=== PATIENT | female | born 1955 | race Caucasian/White ===

== ENCOUNTER 2020-08-05 07:10 | Day surgery (SDC) | payer BC, SELFPAY ==
[2020-08-05] MEDS: Tropicam./Phenyleph. (1/2.5%) 5 ML BTL OS ×2 (07:47→07:54)
[2020-08-05 07:56] VITALS: BP 134/78; PULSE 69; RESP 16; TEMP 36.7; O2SAT 96
[2020-08-05] MEDS: Tetracaine 0.5% 4 ML BTL OS (08:55)
[2020-08-05] MEDS: Balanced Salt Soln.-PLUS 500 ML BAG (08:56)
[2020-08-05] MEDS: Lidocaine 1% Pres-Free 5 ML VIAL (08:57)
[2020-08-05] MEDS: Lidocaine 2% Jelly 6 ML SYR (08:58)
[2020-08-05] MEDS: Povidone-Iodine Ophth 30 ML BTL (09:00)
--- NOTE | 2020-08-05 09:28 | W.PM.DSUDISC ---
Discharge Plan Disposition Patient Disposition: HOME Condition: Good Discharge Details Attending Provider: Kuldeep Rodriguez Primary Care Provider: Carla Alejo Home Meds and New Rx's Prescriptions: No Action spironolactone 25 MG tablet 25 mg PO BID RF: 0 metoprolol succinate 25 MG tablet extended release 24 hr 25 mg PO DAILY RF: 0 diphenoxylate-atropine 1 EACH tablet 1 ea PO PRN PRNRF: 0 Centrum Silver Women 1 EACH tablet 1 ea PO DAILY RF: 0 trandolapril 4 MG tablet 4 mg PO DAILY RF: 0 meloxicam 15 MG tablet 15 mg PO DAILY RF: 0 torsemide 10 MG tablet 10 mg PO DAILY RF: 0 omeprazole 40 MG capsule,delayed release(DR/EC) 40 mg PO DAILY RF: 0 simvastatin 40 MG tablet 40 mg PO DAILY RF: 0 dicyclomine 10 MG capsule 10 mg PO TID RF: 0 Eye Drop Tears 15 ML drops 1 drp Ophthalmic DAILY RF: 0 glucosam-chond kq-jhsjsu-de ac 1 EACH capsule 2 ea PO DAILY RF: 0 celecoxib 200 mg capsule 200 mg PO DAILY RF: 0 Discharge Instructions Stand Alone Forms: Post-op Block Cataract, Post-op Topical Cataract, Press Ganey (DSU) Discharge Orders Discharge Orders: Discharge Order (Routine); Ordered 08/05/20 Ordered By: Kuldeep Rodriguez DS: Diagnosis Discharge Diagnosis (1) Cortical cataract of left eye: Status: Resolved (2) Nuclear sclerotic cataract of left eye: Status: Resolved
--- NOTE | 2020-08-05 09:29 | W.PM.OP ---
Date of service: 08/05/20 Time of Service: 09:29 Operative Note Operative Note DATE OF PROCEDURE: 08/05/20 PRE-OP DIAGNOSIS: Nuclear/cortical cataract, left eye POST-OP DIAGNOSIS: same PROCEDURE: Cataract extraction using phacoemulsification with intraocular lens implant, left eye SURGEON: Kuldeep Rodriguez ANESTHESIA: MAC and local (sub-tenon's anesthetic infiltration) PATHOLOGY: none sent COMPLICATIONS: None Patient was transported to: same day Patient's condition: stable Implants: [employer] / [employer] Tecnis ZCB00 Indications: Progressive decreased vision due to cataract, left eye Procedure Description: CATARACT SURGERY OPERATIVE REPORT PREOPERATIVE DIAGNOSIS: Nuclear/cortical cataract, left eye POSTOPERATIVE DIAGNOSIS: Same OPERATION: Cataract extraction using phacoemulsification with posterior chamber intraocular lens implant, left eye. IOL: IOL Shoe Worker/Model: [employer] / SHAUNA Tecnis ZCB00 IOL Power: + 15.0 diopters IOL Serial Number: [id number] Optic Diameter: 6.0mm Haptic/Overall Diameter: 13.0mm PHACO INFO: [employer]anti [employer] Vision System with OZil and Active Fluidics Cumulative Dispersed Energy (CDE): 6.62 seconds SURGEON: Kuldeep Rodriguez MD, WENDI ANESTHESIA: Monitored Anesthesia Care (MAC), with local sub-tenon's anesthetic infiltration COMPLICATIONS: None SPECIMENS: None INDICATIONS FOR PROCEDURE: The patient is a 64-year-old lady with history of myopia who has developed significant nuclear and cortical cataract of the left eye. She desires cataract surgery and attempt to improve and maximize her vision. PROCEDURE: The correct surgical eye was identified and marked as the left eye and the pupil was dilated in the preoperative area using mydriatics and cycloplegics. The dilated pupil size was 7.0 mm. Oral sedation was administered in the form of an Imprimis MKO Melt (midazolam 3mg/ketamine 25mg/ondansetron 2mg). The patient was brought to the operating room where cardiopulmonary monitoring was instituted and surgical time-out was performed, confirming the correct operative eye and IOL power. Topical anesthesia was administered and ophthalmic povidone-iodine 5% was instilled into the conjunctival fornices. Lidocaine gel was applied to the cornea and the donaldo-ocular area was prepped with Betadine 10% solution and draped in the usual sterile fashion for intraocular surgery, including an aperture drape. A Tegaderm transparent film dressing was cut in half and used to cover the lashes and lid margins. Care was taken to sequester the lashes and lid margins under the Tegaderm dressing. A lid speculum was placed between the lids of the operative eye and the Clark-Skylar operating microscope was maneuvered into position. Doyle scissors were then used to make a conjunctival buttonhole approximately 6mm posterior to the limbus in the inferonasal quadrant. Blunt dissection was carried out to expose bare sclera, and a blunt-tipped sub-tenon?s anesthesia cannula was introduced and passed posteriorly along the globe where non-preserved plain lidocaine was injected into posterior sub-Tenon?s space. A sideport knife was used to make a paracentesis port superior/superiortemporally. Intraocular phenylephrine/lidocaine was injected into the anterior chamber. The anterior chamber was then filled with viscoelastic. A 2.4mm keratome knife was used to create a half-thickness groove at the limbus and then to construct a three-plane near-clear corneal tunnel extending 2.0mm into clear cornea in the temporal position. . A flap was raised on the anterior capsule and capsulorhexis forceps were used to complete a continuous curvilinear capsulorhexis of 5.7 mm. Balanced salt solution was then used to perform cortical cleaving hydrodissection and nuclear hydrodelineation until the lens could be freely rotated within the capsular bag. The lens nucleus was then disassembled and removed within the capsular bag and iris plane using phacoemulsification. Residual cortical material was removed using the 45-degree angled silicone I/A tip with 0.3mm port. The posterior capsule was carefully polished to remove as much residual lens epithelial cells as safely possible. The capsular bag was then inflated and the anterior chamber deepened with viscoelastic. The lens implant described above was inserted into the capsular bag using the SHAUNA [employer] Injector. A Kuglen hook was used to dial the IOL into position. Residual viscoelastic was then removed first from posterior to the IOL, then from the anterior chamber using the I/A handpiece. The lens implant was noted to center nicely within the capsular bag. The incisions were stromally hydrated, and the anterior chamber was reformed using BSS. Then 0.5cc of moxifloxacin 1.0mg/ml were injected into the capsular bag and anterior chamber. The incisions were checked with a Weck spear and found to be secure. Several drops of ophthalmic povidone-iodine 5% were then applied to the eye followed by two drops of Imprimis combination prednisolone/moxifloxacin/nepafenac solution. The drapes were removed and a clear plastic protective eye shield was placed over the eye. The patient was then returned to [facility] in stable condition.
[2020-08-05 09:46] VITALS: BP 131/48; PULSE 68; RESP 17; TEMP 36.6; O2SAT 95
== END 2020-08-05 10:10 | disposition home or self-care (01) ==
PROVIDERS: PCP Nurse Practitioner Family; Visit Provider Ophthalmology
PROC: (CPT 66984; principal; 2020-08-05 09:00)
DX: H25.12 Age-related nuclear cataract, left eye (principal)
CPT/HCPCS: 66984; V2632

== ENCOUNTER 2020-08-26 06:22 | Day surgery (SDC) | payer BC, SELFPAY ==
[2020-08-26 06:35] VITALS: BP 148/75; PULSE 71; RESP 16; TEMP 36.4; O2SAT 97
[2020-08-26] MEDS: Tropicam./Phenyleph. (1/2.5%) 5 ML BTL OD ×3 (06:45→06:55)
[2020-08-26] MEDS: Lidocaine 2% Jelly 6 ML SYR (07:20)
[2020-08-26] MEDS: Tetracaine 0.5% 4 ML BTL OD (07:20)
[2020-08-26] MEDS: Povidone-Iodine Ophth 30 ML BTL (07:21)
[2020-08-26] MEDS: Lidocaine 1% Pres-Free 5 ML VIAL (07:29)
[2020-08-26] MEDS: Balanced Salt Soln.-PLUS 500 ML BAG (07:37)
[2020-08-26] MEDS: Duovisc Viscoelastic System EACH 1 EACH (07:38)
--- NOTE | 2020-08-26 07:53 | W.PM.DSUDISC ---
Discharge Plan Disposition Patient Disposition: HOME Condition: Good Discharge Details Attending Provider: Kuldeep Rodriguez Primary Care Provider: Carla Alejo Home Meds and New Rx's Prescriptions: No Action spironolactone 25 MG tablet 25 mg PO BID RF: 0 metoprolol succinate 25 MG tablet extended release 24 hr 25 mg PO DAILY RF: 0 diphenoxylate-atropine 1 EACH tablet 1 ea PO PRN PRNRF: 0 Centrum Silver Women 1 EACH tablet 1 ea PO DAILY RF: 0 trandolapril 4 MG tablet 4 mg PO DAILY RF: 0 torsemide 10 MG tablet 10 mg PO DAILY RF: 0 omeprazole 40 MG capsule,delayed release(DR/EC) 40 mg PO DAILY RF: 0 simvastatin 40 MG tablet 40 mg PO DAILY RF: 0 dicyclomine 10 MG capsule 10 mg PO TID RF: 0 Eye Drop Tears 15 ML drops 1 drp Ophthalmic DAILY RF: 0 glucosam-chond nz-ylxegq-fm ac 1 EACH capsule 2 ea PO DAILY RF: 0 celecoxib 200 mg capsule 200 mg PO DAILY RF: 0 Discharge Instructions Stand Alone Forms: Post-op Topical Cataract, Mary Alice Schaefer (DSU) Discharge Orders Discharge Orders: Discharge Order (Routine); Ordered 08/26/20 Ordered By: Kuldeep Rodriguez DS: Diagnosis Discharge Diagnosis (1) Cortical cataract of right eye: Status: Resolved (2) Nuclear sclerotic cataract of right eye: Status: Resolved
--- NOTE | 2020-08-26 07:55 | ROE_ITS ---
Date of service: 08/26/20 Time of Service: 07:55 Operative Note Operative Note DATE OF PROCEDURE: 08/26/20 PRE-OP DIAGNOSIS: Nuclear/cortical cataract, right eye POST-OP DIAGNOSIS: same PROCEDURE: Cataract extraction using phacoemulsification with intraocular lens implant, right eye SURGEON: Kuldeep Rodriguez ANESTHESIA: MAC and local (sub-tenon's anesthetic infiltration) ESTIMATED BLOOD LOSS: 0 PATHOLOGY: none sent COMPLICATIONS: None Patient was transported to: same day Patient's condition: stable Implants: [employer] / [employer] Tecnis ZCB00 intraocular lens Indications: Progressive decreased vision due to cataract, right eye Procedure Description: CATARACT SURGERY OPERATIVE REPORT PREOPERATIVE DIAGNOSIS: Nuclear/cortical cataract, right eye POSTOPERATIVE DIAGNOSIS: Same OPERATION: Cataract extraction using phacoemulsification with posterior chamber intraocular lens implant, right eye. IOL: IOL Medical Technologist Blood Bank/Model: [employer] Vision / SHAUNA Tecnis ZCB00 IOL Power: + 14.0 diopters IOL Serial Number: [id number] Optic Diameter: 6.0mm Haptic/Overall Diameter: 13.0mm PHACO INFO: Santi [employer] Vision System with OZil and Active Fluidics Cumulative Dispersed Energy (CDE): 2.15 seconds seconds SURGEON: Kuldeep Rodriguez MD, WENDI ANESTHESIA: Monitored Anesthesia Care (MAC), with local sub-tenon's anesthetic infiltration COMPLICATIONS: None SPECIMENS: None INDICATIONS FOR PROCEDURE: The patient is a 64-year-old lady with history of myopia who has developed symptomatic bilateral nuclear and cortical cataract. She is significantly symptomatic that she desires cataract surgery attempt to improve and maximize her vision. She has already undergone cataract surgery in her left eye and is doing well postoperatively. She now presents for cataract surgery in the right eye. PROCEDURE: The correct surgical eye was identified and marked as the right eye and the pupil was dilated in the preoperative area using mydriatics and cycloplegics. The dilated pupil size was 8.0 mm. Oral sedation was administered in the form of an Imprimis MKO Melt (midazolam 3mg/ketamine 25mg/ondansetron 2mg). The patient was brought to the operating room where cardiopulmonary monitoring was instituted and surgical time-out was performed, confirming the correct operative eye and IOL power. Topical anesthesia was administered and ophthalmic povidone-iodine 5% was instilled into the conjunctival fornices. Lidocaine gel was applied to the cornea and the donaldo-ocular area was prepped with Betadine 10% solution and draped in the usual sterile fashion for intraocular surgery, including an aperture drape. A Tegaderm transparent film dressing was cut in half and used to cover the lashes and lid margins. Care was taken to sequester the lashes and lid margins under the Tegaderm dressing. A lid speculum was placed between the lids of the operative eye and the Clark-Skylar operating microscope was maneuvered into position. Doyle scissors were then used to make a conjunctival buttonhole approximately 6mm posterior to the limbus in the inferonasal quadrant. Blunt dissection was carried out to expose bare sclera, and a blunt-tipped sub-tenon?s anesthesia cannula was introduced and passed posteriorly along the globe where non- preserved plain lidocaine was injected into posterior sub-Tenon?s space. A sideport knife was used to make a paracentesis port inferiortemporally. Intraocular phenylephrine/lidocaine was injected into the anterior chamber. The anterior chamber was then filled with viscoelastic. A 2.4mm keratome knife was used to create a half-thickness groove at the limbus and then to construct a three-plane near-clear corneal tunnel extending 2.0mm into clear cornea in the superiortemporal position. . A flap was raised on the anterior capsule and capsulorhexis forceps were used to complete a continuous curvilinear capsulorhexis of 5.5 mm. Balanced salt solution was then used to perform cortical cleaving hydrodissection and nuclear hydrodelineation until the lens could be freely rotated within the capsular bag. The lens nucleus was then disassembled and removed within the capsular bag and iris plane using phacoemulsification. Residual cortical material was removed using the I/A handpiece. The posterior capsule was carefully polished to remove as much residual lens epithelial cells as safely possible. The capsular bag was then inflated and the anterior chamber deepened with viscoelastic. The lens implant described above was inserted into the capsular bag using the SHAUNA [place] Injector. A Kuglen hook was used to dial the IOL into position. Residual viscoelastic was then removed first from posterior to the IOL, then from the anterior chamber using the I/A handpiece. The lens implant was noted to center nicely within the capsular bag. The incisions were stromally hydrated, and the anterior chamber was reformed using BSS. Then 0.5cc of moxifloxacin 1.0mg/ml were injected into the capsular bag and anterior chamber. The incisions were checked with a Weck spear and found to be secure. Several drops of ophthalmic povidone-iodine 5% were then applied to the eye followed by two drops of Imprimis combination prednisolone/moxifloxacin/nepafenac solution. The drapes were removed and a clear plastic protective eye shield was placed over the eye. The patient was then returned to Same Day Surgery in stable condition.
[2020-08-26 08:20] VITALS: BP 117/74; PULSE 70; RESP 16; TEMP 36.6; O2SAT 95
== END 2020-08-26 23:59 | disposition home or self-care (01) ==
PROVIDERS: PCP Nurse Practitioner Family; Visit Provider Ophthalmology
PROC: (CPT 66984; principal; 2020-08-26 07:30)
DX: H25.011 Cortical age-related cataract, right eye (principal); H25.11 Age-related nuclear cataract, right eye; Z98.42 Cataract extraction status, left eye; Z96.1 Presence of intraocular lens; I50.32 Chronic diastolic (congestive) heart failure
CPT/HCPCS: 66984; V2632